=== PATIENT | female | born 1990 | race Hispanic/Latino ===

== ENCOUNTER 2016-02-26 15:58 | Emergency (ER) ==
[2016-02-26 16:11] VITALS: BP 110/069
--- NOTE | 2016-02-26 17:03 | PROVIDER DOCUMENTATION ---
HPI-Female /OB/Breast - General Source: reports: RN/MD - History of Present Illness-Female /OB Location of complaint: reports: suprapubic Radiation: reports: back Quality of Pain: reports: aching, cramping Severity in ED: reports: mild Onset/Duration: reports: gradual, 3 days ago Timing: reports: still present, constant Context/Activities at Onset: reports: none Urinary Symptoms: reports: dysuria, frequency, low back pain Modifying Factors: worse with: urinating Associated Symptoms: reports: back/neck pain. denies: cough, diaphoresis, diarrhea, fever/chills, nausea, vomiting, weakness Similar Symptoms Previously?: Yes Recently seen or treated by another doctor?: No <Cuong Barahona - Last Filed: 02/26/16 17:01> <Sabrina Sánchez - Last Filed: 02/26/16 17:41> - General Chief Complaint: UTI Symptoms Stated Complaint: LOWER BACK PAIN/HEADACHE Time Seen by Provider: 02/26/16 16:43 Allergies/Adverse Reactions: Patient Allergies Allergy/AdvReac Type Severity Reaction Status Date / Time diphenhydramine HCl * Allergy Mild HIVES Verified 02/26/16 16:11 [From Benadryl] Home Medications: Iron 02/26/16 - History of Present Illness-Female /OB Nature of Presenting Problem: patient is a 25 y/o f that presents to the ER with 3 days of dysuira, low back pain, and urinary frequency. she has lower abdominal pain as well. Denies n/v/d , fever/chills, or hematuria. (Cuong Barahona) Review of Systems - Adult - REVIEW OF SYSTEMS - ADULT Constitutional: denies: chills, fever Eyes: reports: no symptoms reported Ears, Nose, Mouth & Throat: denies: ear pain, sinus problem, nose pain, throat pain Cardiovascular: denies: chest pain, palpitations Respiratory: denies: cough, shortness of breath, wheezing Gastrointestinal: reports: abdominal pain. denies: diarrhea, nausea, rectal bleeding Genitourinary: reports: dysuria, frequency. denies: hematuria, incontinence Musculoskeletal: reports: back pain. denies: joint pain, neck pain Integumentary: reports: no symptoms reported Neurological: reports: no symptoms reported Psychiatric: reports: no symptoms reported Endocrine: reports: no symptoms reported Hematologic/Lymphatic: reports: no symptoms reported Allergic/Immunologic: reports: no symptoms reported All Other Systems: Reviewed and Negative <Cuong Barahona - Last Filed: 02/26/16 17:01> Past History - Adult - PAST MEDICAL HISTORY-ADULT Review of Records: reports: Old Records Reviewed, Nursing Assessment Review, Medications Reviewed, Social history reviewed & non-contributory. Major Childhood Illnesses: reports: denies history Cardiovascular: reports: denies history Respiratory: reports: denies history Gastrointestinal: reports: denies history Obstetrical/Gynecological: reports: other (2 months post / ) Neurological: reports: denies history <Cuong Barahona - Last Filed: 02/26/16 17:01> Physical Exam-General - PHYSICAL EXAM-ADULT Initial Vital Signs Reviewed: Yes - CONSTITUTIONAL General Appearance: alert, no apparent distress - EYES Eyes: PERRL/EOMI, pink conjunctivae - HEAD, EARS, NOSE, MOUTH & THROAT HENMT: normocephalic/atraumatic, moist mucous membranes, normal ENT inspection - NECK Neck: non-tender, full range of motion, normal inspection - RESPIRATORY Respiratory: lungs clear, normal breath sounds, no respiratory distress, no accessory muscle use - CARDIOVASCULAR Cardiovascular: no JVD, no murmur, tachycardia - GASTROINTESTINAL (ABDOMEN) Abdominal Exam: normal bowel sounds, soft, no organomegaly, no pulsatile mass, tenderness (mild suprapubic). negative: distended, guarding, rigid, rebound - MUSCULOSKELETAL Back Exam: no vertebral tenderness, CVA tenderness (left). negative: decreased range of motion Extremity: normal range of motion, normal inspection - SKIN Integumentary: normal color, warm/dry - NEUROLOGIC Neurologic: grossly normal, no motor/sensory deficits - PSYCHIATRIC Psych/Mental Status: normal mood/affect, normal thought content, normal thought process, oriented x 3 <Cuong Barahona - Last Filed: 02/26/16 17:01> Progress <Cuong Barahona - Last Filed: 02/26/16 17:01> <Sabrina Sánchez - Last Filed: 02/26/16 17:41> - PLAN OF CARE/RESULTS Progress/Plan/Lab Results: Vital Signs Temp Pulse Resp BP Pulse Ox 02/26/16 16:07 99.4 F 110 H 20 110/069 100 diphenhydramine HCl * [From Benadryl] Allergy (Mild, Verified 02/26/16 16:11) HIVES Iron 02/26/16 Laboratory 02/26/16 17:20 Urine Source CLEAN CATCH Urine Color YELLOW Urine Clarity VERY CLOUDY A Urine pH 6.5 Ur Specific [place] 1.015 Urine Protein 1+(30 mg/dL) A Urine Ketones NEGATIVE Urine Blood 3+ A Urine Nitrite POSITIVE A Urine Bilirubin NEGATIVE Urine Urobilinogen NORMAL Urine WBC 2+ A Urine Glucose NEGATIVE Orders Category Date Time Status UA [URINALYSIS PL W/POSS RFLX CULT] [URINALYSIS] Stat Lab 02/26/16 17:20 Results Sulfamethoxazole/Tmp D.s. [Septra Ds] Med 02/26/16 17:40 Once 1 each PO NOW ONE (Sabrina Sánchez) Departure <Cuong Barahona - Last Filed: 02/26/16 17:01> - Departure Time of Disposition Order: 17:40 Certified Medical Emergency: Emergent <Sabrina Sánchez - Last Filed: 02/26/16 17:41> - Departure DIAGNOSIS: Acute UTI Disposition: HOME 01 Condition: Stable Additional Instructions: ED Follow Up Instructions: You have been treated by a care provider in the Emergency Department. These instructions are being provided to you so you can have an understanding of how to care for yourself upon discharge. Upon discharge from the Emergency Department, you are responsible for making arrangements for follow-up care by a physician of your choice. Take all prescribed medications as directed. Return to the Emergency Department immediately for any new or worsening symptoms. You may call the Physician Referral phone number at [phone] to obtain a list of Physicians who are taking new patients. Prescriptions: Sulfamethoxazole/Trimethoprim [Bactrim Ds Tablet] 1 each PO BID #10 tablet Attestation - Scribe Verification/Attestation Scribe:: Cuong Barahona Acting as Scribe for:: Sabrina Sánchez Scribe documention review:: This chart was documented by a scribe and accurately reflects the service the provider performed and the decisions made by the provider. - Physician/ Mid-level Attestation Patient care was provided by Mid-level provider ([employer]BI[employer] SALES CONSULTANT/PA):: Yes Mid-level provider:: Sabrina Sánchez Mid-level documentation review:: The Mid-level provider documentation, treatment plan and medical decision making was reviewed by the physician who agrees with all treatment and medical decision making by the MLP. <Cuong Barahona - Last Filed: 02/26/16 17:01> Physician Attestation
[2016-02-26 17:21] LABS: URINE SOURCE CLEAN CATCH
[2016-02-26 17:37] LABS: BILIRUBIN URINE NEGATIVE (NEGATIVE); BLOOD URINE 3+ (NEGATIVE); CLARITY VERY CLOUDY (CLEAR); COLOR YELLOW; GLUCOSE URINE NEGATIVE (NEGATIVE); LEUKOCYTES URINE 2+ (NEGATIVE); NITRITE URINE POSITIVE (NEGATIVE); PH URINE 6.5; PROTEIN URINE 1+(30 mg/dL) mg/dL (NEGATIVE); SP GRAVITY URINE 1.015; UROBILINOGEN URINE NORMAL
[2016-02-26] MEDS ORDERED: SEPTRA DS PO ONE (17:40)
[2016-02-26 17:48] LABS: URINE WBC TNTC /HPF (<10)
[2016-02-26 17:49] LABS: URINE CAST NONE SEEN /LPF; URINE CRYSTAL NONE SEEN /HPF; URINE CULTURE PL NEEDED? YES; URINE EPITHELIAL CELLS <10 /HPF (<10)
== END 2016-02-26 17:49 | disposition home or self-care (01) ==
LOC: P.ED 15:58
DX: N39.0 Urinary tract infection, site not specified (principal); M54.5 Low back pain; R51 Headache; R30.0 Dysuria; R35.0 Frequency of micturition; R10.30 Lower abdominal pain, unspecified; R00.0 Tachycardia, unspecified; R10.819 Abdominal tenderness, unspecified site
CPT/HCPCS: 81001; 87077; 87088; 87186; 99283